=== PATIENT | female | born 1965 | race African-American/Black ===

== ENCOUNTER 2024-11-13 12:27 | Emergency (ER) | payer OTHER ==
[2024-11-13] MEDS ORDERED: TDAP (DIPHTH,PERTUSS(ACELL),TET VAC) 0.5 ML VIAL IMVAC ONE (13:03)
[2024-11-13] MEDS ORDERED: LIDOCAINE HCL JELLY 2% 6 ML SYRINGE TOP ONE (13:03)
--- NOTE | 2024-11-13 13:34 | RAD REPORT ---
EXAMINATION: CT HEAD WITHOUT CONTRAST CT CERVICAL SPINE WITHOUT CONTRAST CLINICAL INDICATION: Head and neck injury status post fall. Head and neck pain TECHNIQUE: Axial CT images from the skull base to the vertex without intravenous contrast. Axial CT i mages through the cervical spine were obtained without intravenous contrast. Sagittal and coronal reformatted images were created from the data set. Coronal and sagittal reformatted images were creat ed from the data set. One or more of the following dose reduction techniques were used: Automated exposure control, adjustment of the mA and/or kV according to patient size, and/or iterative reconstr uction. Unless otherwise specified, incidental findings do not require dedicated imaging follow-up. [id number]. Comparison: none FINDINGS: An intracranial bleed is not seen. Ventricles are normal in caliber. No significant hypodensity within the brain No extra-axial fluid collection. 14 mm calcification along the right frontal convexity may. There is no surrounding edema. No fluid within the sinuses/mastoids No fracture or dislocation is seen involving the cervical spine. Mild anterior subluxation C7 on T1. Spondylosis cervical spine central spinal stenosis is most marked C4-5. It is moderate at this level. IMPRESSION: No acute intracranial abnormality noted A cervical fracture is not seen. If the patient continues to have symptoms to suggest acute [employer]ATOR/spinal pathology then MRI would be rec ommended
--- NOTE | 2024-11-13 13:41 | RAD REPORT ---
Procedure: Chest Single View HISTORY: Chest pain COMPARISON: none FINDINGS: The lungs appear clear of acute infiltrate. No significant pleural effusion noted. The heart is normal size. IMPRESSION: No acute abnormality is displayed.
--- NOTE | 2024-11-13 13:44 | RAD REPORT ---
Exam:Shoulder Right 2+ Views History: Right shoulder pain Findings: Deformity right humeral head. It is uncertain if this is secondary to an acute or old fracture. CT c ould be obtained for further evaluation The humeral head is high riding probably indicating a chronic rotator cuff tear Patient
--- NOTE | 2024-11-13 13:45 | RAD REPORT ---
Exam:Pelvis CLINICAL HISTORY: Pelvic pain FINDINGS: Patient is rotated. No fracture or dislocation seen If the patient continues to have symptoms to suggest an occult fracture MRI would be recommended
[2024-11-13] MEDS ORDERED: LIDOCAINE 2% W/EPI 1:200,000 MPF 20 ML VIAL IM ONE (13:56)
--- NOTE | 2024-11-13 16:15 | EDPHYS ---
Physician Documentation [facility] Name: Amos Dobbins Age: 58 yrs Sex: Female : 1965 Arrival Date: 11/13/2024 Time: 12:27 Bed 20 Private MD: ED Physician Rah Hayward HPI: 11/13 12:42 This 58 yrs old Black Female presents to ER via Unassigned with complaints of Fall ec2 Injury. 12:42 Patient arrives today for evaluation of a fall injury. Patient has history of Down ec2 syndrome, has baseline aphasic, sustained a laceration to the right forehead. No reported LOC, was witnessed.. Historical: - Allergies: 12:45 No Known Allergies; ap3 - Home Meds: 12:45 oxcarbazepine 600 mg oral tablet [Active]; ativan [Active]; naproxen 500 mg Oral tablet ap3 [Active]; aripiprazole 2 mg oral tablet [Active]; cholecalciferol (vitamin D3) 25 mcg (1,000 unit) oral tablet [Active]; sertraline 25 mg oral tablet 1 tab daily [Active]; loratadine 10 mg oral tablet 1 tab once [Active]; - PMHx: 12:45 aphasia; Diabetes mellitus; Depressive disorder; oppositional defiant disorder; Asthma; ap3 Seizure; down syndrome; Hypercholesterolemia; obstructive sleep apnea; Osteoarthritis; - Immunization history:: Adult Immunizations up to date. - Infectious Disease History:: Denies. - Social history:: Smoking status: unknown. ROS: 12:42 Constitutional: as per hpi ec2 Exam: 12:42 Constitutional: GEN: No acute distress HEENT: -Head: no deformities -Eyes: EOMI CV: ec2 regular rate LUNGS: no respiratory distress ABD: non-tender SKIN: Approximately 4 cm and a laceration to the right forehead. MSK: No C/T/L spine deformities RUE w/o bony deformity, questionable right shoulder TTP LUE w/o bony deformity RLE w/o bony deformity, questionable right hip TTP LLE w/o bony deformity NEURO: moves all extremities equally, GCS 15 (E4, V5, M6) Vital Signs: 12:38 BP 114 / 74; Pulse 56; Resp 14; Pulse Ox 100% on R/A; ap3 14:20 BP 122 / 76; Pulse 60; Resp 16; Temp 98.6(A); Pulse Ox 100% ; ap3 15:41 BP 137 / 60; Pulse 60; Resp 17; Pulse Ox 100% on R/A; ap3 19:19 Pulse 58; Pulse Ox 98% on R/A; ap3 Laceration: 16:13 Wound Repair of 4cm ( 1.6in ) subcutaneous laceration to forehead. Distal ec2 neuro/vascular/tendon intact. Anesthesia: Local anesthetic administered with 7 mls of 1% lidocaine. Wound prep: Moderate cleansing by nurse. Skin closed with 6 4-0 chromic gut using simple sutures and sterile technique. Patient tolerated well. MDM: 12:36 Medical Screening Exam initiated ec2 12:42 Data reviewed: vital signs, nurses notes. ED course: Patient arrives today for ec2 evaluation of a fall from wheelchair. Examination yields MSK and skin findings as above. Given the patient's aphasic baseline and verbal limitations, will obtain CT scan of the head and C-spine, will obtain chest and shoulder x-ray as well as pelvis x-ray to evaluate for injury. Differential includes contusion, fracture, dislocation, laceration.. 16:15 ED course: CT scan of the head and C-spine without acute traumatic process. Chest x-ray ec2 shows no acute intrathoracic process. Right shoulder x-ray shows high riding humeral head with deformity of questionable uncertainty, will place patient in sling. Will have patient follow-up for orthopedic surgery for this. Will discharge home. Return precautions given. I repaired laceration without issue.. 11/13 12:37 Order name: CT Head C Spine; Complete Time: 13:51 ec2 11/13 12:37 Order name: CXR XRAY; Complete Time: 13:51 ec2 11/13 12:37 Order name: Shoulder Right (2 View) XRAY; Complete Time: 13:51 ec2 11/13 12:37 Order name: Pelvis XRAY; Complete Time: 13:51 ec2 11/13 12:37 Order name: Misc. Order; Complete Time: 13:52 ec2 11/13 16:16 Order name: Sling; Complete Time: 18:46 ec2 Administered Medications: 13:52 Drug: Viscous Lidocaine Mucous Membrane Liquid (4 %) 10 ml Mucous Membrane once Route: ap3 Mucous Membrane; 13:52 Drug: Boostrix Tdap IM 0.5 ml IM once; as a single dose Route: IM; Site: right deltoid; ap3 15:49 Follow up: Response: (VIS) Vaccine information sheet provided today. Questions and/or ap3 concerns addressed. VIS edition date: Jun 13, 2021.; No adverse reaction 15:42 Drug: Lidocaine-Epinephrine Infiltration -2 % (1:100,000) 10 ml Infiltration once; to ap3 bedside {Note: by dr hyaward.} Route: Infiltration; Disposition Summary: 11/13/24 16:15 Discharge Ordered Condition: Stable ec2 Diagnosis - Laceration without foreign body of scalp ec2 - Questionable Humeral Head Fracture ec2 Followup: ec2 - With: Private Physician - When: - Reason: Re-evaluation by your physician Discharge Instructions: - Discharge Summary Sheet ec2 - Facial Laceration, [id number] ec2 Forms: - Medication Reconciliation Form ec2 - Antibiotic Education ec2 - Prescription Opioid Use ec2 - Patient Portal Instructions ec2 - Leadership Thank You Letter ec2 Signatures: Dispatcher [employer] Alejandrina Easton RN RN ap3 Rah Hayward MD MD ec2
--- NOTE | 2024-11-13 16:15 | ER ---
Nurse's Notes [facility] Name: Amos Dobbins Age: 58 yrs Sex: Female : 1965 Arrival Date: 11/13/2024 Time: 12:27 Bed 20 Private MD: Diagnosis: Laceration without foreign body of scalp;Questionable Humeral Head Fracture Presentation: 11/13 12:38 Chief complaint: EMS states: they were called to [facility] for a patient who ap3 fell out of her wheelchair and hit the right side of her head. patient comes to the ED with a dressing on her head and bleeding noted around a right front tooth. Coronavirus screen: At this time, the client does not indicate any symptoms associated with coronavirus-19. Ebola Screen: No symptoms or risks identified at this time. Initial Sepsis Screen: Does the patient meet any 2 criteria? No. Patient's initial sepsis screen is negative. Does the patient have a suspected source of infection? No. Patient's initial sepsis screen is negative. Risk Assessment: Do you want to hurt yourself or someone else? Patient reports no desire to harm self or others. Onset of symptoms was November 13, 2024. 12:38 Method Of Arrival: EMS: [facility] ap3 12:38 Acuity: TOM 3 ap3 Triage Assessment: 12:51 General: Appears in no apparent distress. Behavior is patient is non-verbal. patient is ap3 currently calm. Pain: Unable to use pain scale. non-verbal. EENT: bleeding noted around a right front tooth. Neuro: Level of Consciousness is awake, alert, Oriented to unable to assess due to patient being nonverbal. patient is awake, alert and traces . Cardiovascular: Patient's skin is warm and dry. Respiratory: Airway is patent Respiratory effort is even, unlabored, Respiratory pattern is regular, symmetrical. Derm: Wound noted forehead. Historical: - Allergies: 12:45 No Known Allergies; ap3 - Home Meds: 12:45 oxcarbazepine 600 mg oral tablet [Active]; ativan [Active]; naproxen 500 mg Oral tablet ap3 [Active]; aripiprazole 2 mg oral tablet [Active]; cholecalciferol (vitamin D3) 25 mcg (1,000 unit) oral tablet [Active]; sertraline 25 mg oral tablet 1 tab daily [Active]; loratadine 10 mg oral tablet 1 tab once [Active]; - PMHx: 12:45 aphasia; Diabetes mellitus; Depressive disorder; oppositional defiant disorder; Asthma; ap3 Seizure; down syndrome; Hypercholesterolemia; obstructive sleep apnea; Osteoarthritis; - Immunization history:: Adult Immunizations up to date. - Infectious Disease History:: Denies. - Social history:: Smoking status: unknown. Screenin:53 [facility] ED Fall Risk Assessment (Adult) History of falling in the last 3 months, ap3 including since admission Yes- single mechanical fall (1 pt) Confusion or Disorientation Yes (5 pts) Intoxicated or Sedated No (0 pts) Impaired Gait Yes (1 pt) Mobility Assist Device Used Yes (1 pt) Altered Elimination Yes (1 pt) Score/Fall Risk Level 3 or more points = High Risk Oriented to surroundings, Maintained a safe environment, Educated pt \\T\\ family on fall prevention, incl call for assistance when getting out of bed, Assessed \\T\\ reinforced patient's understanding of fall precautions, Hourly rounding (assess needs \\T\\ fall precautionary measures) done, Used ambulatory aids as needed (educated on \\T\\ assisted with), Implemented a Fall Risk Plan of Care, Remained w/in arm's length of patient and in sight while toileting, Offered frequent toileting (1:1 observation), Remained with patient while ambulating, Utilized family, sitter, or virtual continuity editor as indicated. Abuse screen: Denies threats or abuse. Nutritional screening: No deficits noted. Tuberculosis screening: No symptoms or risk factors identified. Assessment: 14:20 General: Appears in no apparent distress. comfortable, Behavior is calm, cooperative, ss Denies fever, feeling ill, fatigue, chills. Pain: Denies pain. Neuro: Level of Consciousness is awake, alert, obeys commands, Oriented to person, place, time, situation, Speech is normal. Respiratory: Airway is patent Respiratory effort is even, unlabored. GI: No signs and/or symptoms were reported involving the gastrointestinal system. EENT: nasal packing noted to Jermaine gomez. Pt states, "they put it in an hour ago at urgent care and I just want it out. It was just a nose bleed and it's not even bleeding anymore." . Derm: Skin is intact, is healthy with good turgor, Skin is dry, Skin is pink, warm \\T\\ dry. normal. 17:59 Reassessment: family is at bedside. 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 General: Appears in no apparent distress. comfortable. 18:50 General: report given to jail. they state they will be arranging transport . ap3 Vital Signs: 12:38 BP 114 / 74; Pulse 56; Resp 14; Pulse Ox 100% on R/A; ap3 14:20 BP 122 / 76; Pulse 60; Resp 16; Temp 98.6(A); Pulse Ox 100% ; ap3 15:41 BP 137 / 60; Pulse 60; Resp 17; Pulse Ox 100% on R/A; ap3 19:19 Pulse 58; Pulse Ox 98% on R/A; ap3 ED Course: 12:36 Patient arrived in ED. ec2 12:36 Rah Hayward MD is Attending Physician. ec2 12:38 Alejandrina Hartmann RN is Primary Nurse. ap3 12:45 Triage completed. ap3 12:53 Patient has correct armband on for positive identification. Bed in low position. Call ap3 light in reach. Side rails up X2. Provided Education on: monitoring needs. Client placed on continuous cardiac and pulse oximetry monitoring. NIBP monitoring applied. desk monitor on. Pulse ox on. NIBP on. Door closed. Noise minimized. Warm blanket given. 12:54 Arm band placed on right wrist. ap3 13:04 CT Head C Spine In Process Unspecified. EDMS 13:37 CXR XRAY In Process Unspecified. EDMS 13:37 Shoulder Right (2 View) XRAY In Process Unspecified. EDMS 13:37 Pelvis XRAY In Process Unspecified. EDMS 19:42 No provider procedures requiring assistance completed. Patient did not have IV access ap3 during this emergency room visit. Administered Medications: 13:52 Drug: Viscous Lidocaine Mucous Membrane Liquid (4 %) 10 ml Mucous Membrane once Route: ap3 Mucous Membrane; 13:52 Drug: Boostrix Tdap IM 0.5 ml IM once; as a single dose Route: IM; Site: right deltoid; ap3 15:49 Follow up: Response: (VIS) Vaccine information sheet provided today. Questions and/or ap3 concerns addressed. VIS edition date: Jun 13, 2021.; No adverse reaction 15:42 Drug: Lidocaine-Epinephrine Infiltration -2 % (1:100,000) 10 ml Infiltration once; to ap3 bedside {Note: by dr hayward.} Route: Infiltration; Medication: 14:20 VIS not applicable for this client. ss Outcome: 16:15 Discharge ordered by . ec2 19:43 Discharged to home via ambulance, ap3 19:43 Condition: good 19:43 Discharge instructions given to patient, jail, Instructed on discharge instructions, wound care, Demonstrated understanding of instructions, follow-up care, wound care, 19:43 Patient left the ED. ap3 Signatures: Dispatcher [employer] EDYuridia Starks RN RN Alejandrina Hartmann RN RN ap3 Rah Hayward MD MD 2
[2024-11-13 19:50] VITALS: TEMP 98.6
[2024-11-13 19:51] VITALS: BP 137/60
[2024-11-13 19:52] VITALS: O2SAT 98
== END 2024-11-13 19:43 | disposition home or self-care (01) ==
LOC: ER 12:27
PROC: 0JQ10ZZ Repair Face Subcutaneous Tissue and Fascia, Open Approach (ICD-10-PCS; principal; 2024-11-13)
DX: S01.01XA Laceration without foreign body of scalp, initial encounter (principal); M21.921 Unspecified acquired deformity of right upper arm; E11.9 Type 2 diabetes mellitus without complications; F32.A Depression, unspecified; J45.909 Unspecified asthma, uncomplicated; E78.00 Pure hypercholesterolemia, unspecified; G47.33 Obstructive sleep apnea (adult) (pediatric); F91.3 Oppositional defiant disorder; Q90.9 Down syndrome, unspecified; W05.0XXA Fall from non-moving wheelchair, initial encounter; Y93.9 Activity, unspecified; Y92.129 Unspecified place in nursing home as the place of occurrence of the external cause; Z23 Encounter for immunization
CPT/HCPCS: 12013; 70450; 71045; 72125; 72170; 96372; 99285